=== PATIENT | female | born 1980 | race Two or more races ===

== ENCOUNTER 2016-10-29 15:56 | Emergency (ER) | payer OTHER ==
[2016-10-29] MEDS ORDERED: MORPHINE SULFATE 4 MG/ML SYRINGE ONE (16:24)
[2016-10-29] MEDS ORDERED: SODIUM CHLORIDE 0.9% 1,000 ML ONE (16:24)
[2016-10-29 16:49] LABS: ABSOLUTE NEUTROPHIL COUNT 9.9 K/mm3 (1.8-7.7); BASO % 0.2 % (0.2-1.0); EOS # 0.1 (0.0-0.5); EOS % 1.1 % (0.9-2.9); HEMATOCRIT 37.9 % (37.0-47.0); HEMOGLOBIN 12.3 gm/l (12.0-16.0); IMM NEUT% 0.3 % (0-1); LYMPH # 1.3 (1.0-4.8); LYMPH % 10.6 % (15-45); MEAN CELL VOLUME 85.7 fl (81.0-99.0); MEAN CORPUSCULAR HEMOGLOBIN 27.8 pg (27.0-31.0); MEAN CORPUSCULAR HGB CONC 32.5 g/dl (33.0-37.0); MEAN PLATELET VOLUME 9.4 fl (7.4-10.4); MONO # 0.8 (0.0-0.8); MONO % 6.3 % (4-12); NEUT % 81.5 % (43-75); PLATELET COUNT 290 K/mm3 (130-400); RED CELL DISTRIBUTION WIDTH 13.5 % (11.5-14.5)
[2016-10-29 17:05] LABS: ALB/GLOB RATIO 1.4 (>1.0); CALCIUM 8.8 mg/dL (8.6-10.3)
[2016-10-29 17:11] LABS: INR 1.02; PROTHROMBIN TIME 10.7 SECONDS (9.3-11.4)
[2016-10-29] MEDS ORDERED: METHOTREXATE SODIUM 25 MG/ML IM ONE (17:45)
--- NOTE | 2016-10-29 18:58 | CONS ---
MONCHO ALMEIDASARAH [id number] DATE OF CONSULTATION: October 29, 2016 REASON FOR CONSULTATION: Ectopic . HISTORY OF PRESENT ILLNESS: Patient is a 36-year-old female 2, para 1, with last menstrual period of September 18, 2016. The patient had some lower abdominal pain starting yesterday and was noted by her primary care physician to be positive for test today. Patient was sent for an ultrasound which did show no intrauterine . However, there is an irregular mass proximally measuring 3.4 x 3.1 x 4 cm with complex fluid collection in cul-de-sac. This was interpreted as an ectopic in the right. Patient was subsequently sent to the emergency room for evaluation and management of ectopic . Her initial beta HCG was 4340. Other laboratory studies show normal creatinine at 0.6, AST of 22, ALT of 48, glucose of 153, bilirubin of 0.3, WBC of 12.2, platelets 290, hemoglobin 12.3. Patient's blood type is B positive with negative antibody screen. 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 She denies any history of abnormal Pap smears or sexually transmitted disease. PAST MEDICAL HISTORY: Patient has had a history of diabetes. PAST SURGICAL HISTORY: She had: 1. Cholecystectomy. 2. Tonsillectomy. 3. section. SOCIAL HISTORY: Patient is Khmer speaking, and the interview was performed with an certified first assistant. Patient's lives in [place] and she had visited him in mid September, returning approximately two or three weeks ago. Patient is sure this interval is when she conceived. PHYSICAL EXAM: GENERAL: Patient is alert and appropriate in no apparent distress. She is mobile and ambulatory. HEART: Regular rate and rhythm. LUNGS: Clear to auscultation bilaterally. ABDOMEN: Nondistended and soft. There is tenderness on deep palpation in the right lower quadrant. However, without rebound or guarding. EXTREMITIES: Exam is normal. ASSESSMENT AND PLAN: This is a 36-year-old female with ectopic noted by HCG of 4340 and no intrauterine with a mass on the right side consistent with right ectopic . Patient is stable at this time with a hemoglobin greater than 12 and her other laboratory studies are within normal limits. I have discussed options of ectopic management including laparoscopic salpingectomy or methotrexate injection. Benefits and risks of each have been reviewed. Patient still desires conception and tubal conservation. Patient requests medical management with methotrexate. Side effects and risks of methotrexate including future tubal rupture as well as side effects of nausea, vomiting and pain have been discussed. Patient was counseled with regards to strict followup. She will follow up on November 01, 2016 for repeat HCG at that time. Patient was given precautions with regard to further symptoms of ectopic .
== END 2016-10-29 19:14 | disposition home or self-care (01) ==
LOC: ED 15:56
DX: O00.90 Unspecified ectopic pregnancy without intrauterine pregnancy (principal); R10.9 Unspecified abdominal pain; O24.119 Pre-existing type 2 diabetes mellitus, in pregnancy, unspecified trimester; E11.9 Type 2 diabetes mellitus without complications; Z3A.00 Weeks of gestation of pregnancy not specified; Z79.84 Long term (current) use of oral hypoglycemic drugs
CPT/HCPCS: 84702; 85025; 80053; 85610; 86901; 86850 ×3; 99284; 96372; 96374; 99283; J9250; J2270; J7030